=== PATIENT | male | born 2005 | race African-American/Black ===

== ENCOUNTER 2025-02-10 13:47 | Emergency (ER) | payer MEDICAID, SELFPAY ==
--- NOTE | ~2025-02-10 | XR_ITS ---
EXAMINATION: XR foot LT min 3V DATE: 02/10/2025 15:03 INDICATION: Left foot surgery 3 weeks ago TECHNIQUE: 6 images of the left foot were obtained. COMPARISON: None. FINDINGS: Orthopedic screw in the calcaneus presumably transfixing a fractured calcaneus. Alignment is near anatomic. There is orthopedic hardware along the medial aspect of the midfoot without radiographic evidence for loosening of the hardware. Mild hallux valgus deformity. Mild joint space narrowing in the first metatarsophalangeal joint with adjacent soft tissue swelling. Bone mineralization is within normal limits. No sclerotic or destructive bone lesions identified. Soft tissue swelling about the left foot. IMPRESSION: 1. Orthopedic screw in the calcaneus presumably transfixing a fractured calcaneus. Alignment is near anatomic. 2. There is orthopedic hardware along the medial aspect of the midfoot without radiographic evidence for loosening of the hardware. 3. Mild hallux valgus deformity. Mild joint space narrowing in the first metatarsophalangeal joint with adjacent soft tissue swelling. If continued concern, consider a short-term follow-up study or additional imaging for further assessment. Reviewed, dictated and finalized at location Q. IMPRESSION: 1. Orthopedic screw in the calcaneus presumably transfixing a fractured calcane us. Alignment is near anatomic. 2. There is orthopedic hardware along the medial aspect of the midfoot without radiographic evidence for loosening of the hardware. 3. Mild hallux valgus deformity. Mild joint space narrowing in the first metata rsophalangeal joint with adjacent soft tissue swelling. If continued concern, consider a short-term follow-up study or additional imagi ng for further assessment.
[2025-02-10 13:51] VITALS: BP 132/96; PULSE 107; RESP 18; TEMP 37.6; O2SAT 99
[2025-02-10] MEDS: KETOROLAC (*BKC) 60 MG/2 ML VIAL IM (15:46)
--- NOTE | 2025-02-10 15:46 | ED_ITS ---
HPI - Extremity Problem General Chief complaint: Extremity Problem,Nontraumatic Stated complaint: L. foot pain Time Seen by Provider: 02/10/25 14:37 History of Present Illness HPI Narrative: Patient is a 19-year-old male who presents to the ER with complaints left inner foot pain. He reports his pain has been going on for many years but has recently worsened. Patient reports he has a history of CP and has had multiple surgeries on his left foot. He denies any recent new injury. Patient reports he has been trying to work out to improve pain, but he reports it has not helped. He reports he is able to ambulate, but he is concerned because his left leg is his ?dominant leg. Patient denies any other medical history relevant to this ER visit. He denies any calf pain, recent fevers, decreased range of motion or joint swelling. Related Data Allergies Allergy/AdvReac Type Severity Reaction Status Date / Time No Known Allergies Allergy Verified 02/10/25 13:54 Review of Systems Review of Systems: All systems reviewed & are unremarkable except as noted in HPI and below Exam Narrative: GENERAL: Well appearing, well-nourished, non-toxic, in no acute distress. HEAD: Normocephalic, atraumatic. NECK: Supple. No adenopathy, no masses. RESPIRATORY: Airway patent, respirations nonlabored. Clear to auscultation bilaterally, no rales, rhonchi, wheezing. CARDIOVASCULAR: Regular rate and rhythm without murmurs, rubs, or gallops. Peripheral pulses 2+ and equal bilaterally. ABDOMINAL: Soft, nontender, nondistended, no hepatosplenomegaly. Normoactive BS. MUSCULOSKELETAL: Moves all extremities. Strength/ROM intact without acute gross deformities. SKIN: Warm, dry, normal color. No rashes. NEURO: A&O X3. Speech clear. Cranial nerves II-XII intact. No ataxic movements. PSYCHIATRIC: Appropriate mood and affect. Normal interaction. Course Vital Signs Vital signs: Vital Signs Temperature 37.6 C 02/10/25 13:51 Pulse Rate 107 H 02/10/25 13:51 Respiratory Rate 18 02/10/25 13:51 Blood Pressure 132/96 H 02/10/25 13:51 Pulse Oximetry 99 02/10/25 13:51 Oxygen Delivery Room Air 02/10/25 13:51 Temperature 37.6 C 02/10/25 13:51 Pulse Rate 107 H 02/10/25 13:51 Respiratory Rate 18 02/10/25 13:51 Blood Pressure 132/96 H 02/10/25 13:51 Pulse Oximetry 99 02/10/25 13:51 Oxygen Delivery Room Air 02/10/25 13:51 MDM - Extremity (Nontraumatic) MDM Narrative Medical decision making narrative: Patient is a 19-year-old male who presents to the ER with complaints left inner foot pain. He reports his pain has been going on for many years but has recently worsened. Patient reports he has a history of CP and has had multiple surgeries on his left foot. He denies any recent new injury. Patient reports he has been trying to work out to improve pain, but he reports it has not helped. He reports he is able to ambulate, but he is concerned because his left leg is his ?dominant leg. Patient denies any other medical history relevant to this ER visit. He denies any calf pain, recent fevers, decreased range of motion or joint swelling. Labs Ordered: None necessary Imaging Ordered: Left foot x-ray Medications Ordered: Toradol 60 mg IM Results: Patient's left foot x-ray indicates 1. Orthopedic screw in the calcaneus presumably transfixing a fractured calcaneus. Alignment is near anatomic. 2. There is orthopedic hardware along the medial aspect of the midfoot without radiographic evidence for loosening of the hardware. 3. Mild hallux valgus deformity. Mild joint space narrowing in the first m etatarsophalangeal joint with adjacent soft tissue swelling. Diagnosis: Left foot pain, osteoarthritis Consults: Orthopedic surgery (outpatient), podiatry (outpatient) Patient Education/Shared MDM: Results of imaging shared with patient. Patient strongly advised to follow-up with orthopedic surgery or Podiatry soon as possible. He will be discharged home with a prescription for ibuprofen 800mg. Patient offered an Hima wrap but he declined. Strict return precautions provided. Patient verbalized understanding and is in agreement with plan. Vital signs stable at time of discharge. All questions answered. Differential Diagnosis Differential diagnosis: Likely lower extremity edema and other (Left foot fracture, left foot sprain, hardware movement, left foot pain) Discharge Plan Discharge Clinical Impression: Chronic pain in left foot, Osteoarthritis of foot, left Patient Disposition: Home Condition: Stable Instructions: Antibiotic Form, Osteoarthritis (ED) Additional Instructions: Please return to the ER with any worsening symptoms. Follow-up with Podiatry or Orthopedic surgery as soon as possible. You may take ibuprofen 800 mg every 8 hours for pain control. Patient Language: Prydeinig Prescriptions: New ibuprofen 800 mg tablet 800 mg PO TID Qty: 30 0RF Follow-up/Referrals: [facility] [Provider Group, Podiatry] Referral Note: podiatry Karthik Cornejo DPM [Physician, Podiatry] Referral Note: podiatry Kartik Verdni Jr., DPM [Physician, Podiatry] Referral Note: podiatry PHYSICIAN NOT ON STAFF,NONSTAFF [Primary Care Provider] Campbell Simmons MD [Physician, Orthopedics] Referral Note: orthopedic surgery Time of Disposition: 16:12
[2025-02-10 16:21] VITALS: BP 112/62; PULSE 86; RESP 16; TEMP 36.4; O2SAT 98
--- OUTSIDE RECORDS SUMMARY | 2025-02-10 16:37 | XMS_ITS | Clinical Summary ---
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 Social History Tobacco Use Types Packs/Day Years Used Date Smoking Tobacco: Never Smokeless Tobacco: Never Tobacco Cessation:Counseling Given: Not Answered Sex and Gender Information Value Date Recorded Sex Assigned at Male 03/12/2022 12:03 AM EDT Legal Sex Male 12:03 AM EDT Gender Identity Not on file Sexual Orientation Not on file Last Filed Vital Signs Vital Sign Reading Time Taken Comments Blood Pressure 120/70 11/29/2021 9:53 AM CDT Pulse - - Temperature - - Respiratory Rate - - Oxygen Saturation - - Inhaled Oxygen Concentration - - Weight 62.5 kg (137 lb 12.6 oz) 024 10:46 AM SKIN FORMER Height 160 cm (5' 2.99) 07/01/2023 10: 46 AM SKIN FORMER Body Mass Index 24.41 07/01/2023 10:46 AM SKIN FORMER Plan of Treatment Not on file Insurance [place] [id number] [facility] Care Teams Fudge Candy Maker Relationship Specialty Start Date End Date Dewey Horner DO [address] [address] PCP - General 03/04/22
--- OUTSIDE RECORDS SUMMARY | 2025-02-10 16:37 | XMS_ITS | Clinical Summary ---
Author Organization [facility] Address [address] [place] [id number] Care Team Providers Care Computer Meteorologist Name Role Phone Freddie Perdomo MD Primary Care Provider Allergies No known active allergies Medications Baclofen 5 MG tablet Take 5 mg by mouth 3 times daily as needed. 03/18/2024 Active Active Problems Problem Noted Date Diagnosed Date Impaired mobility 10/11/2022 Spastic cerebral palsy (CMD) 04/12/2022 Pes planus 11/28/2021 Resolved Problems Problem Noted Date Diagnosed Date Resolved Date Total self-care deficit 11/02/2019 04/0 11/2024 Immunizations Immunization Administration Dates Next Due DTaP 08/03/2004, 4,2003,05/13 HIB, Unspecified Formulation 08/03/2004, 2003,2003,05/13 Hep B, adolescent or pediatric 2003,2002,2003 IPV 2003,2003,2003 MMR 03/18/2009,04/06/2004 Meningococcal B, OMV 01/16/2021 Meningococcal Conjugate MCV4 P (Menactra) 01/16/2021,01/14/2018 Meningococcal MCV4, Unspecif ied Formulation 01/16/2021 Pneumococcal Conjugate 7 Valent 12/01/19 05,08/03/2004,2003,05/13 Polio, Unspecified Formulation 03/18/2009 Tdap 05/01/2015 Varicella 03/18/2009,11/30/2004 Medical History Medical History Date Comments Cerebral palsy (CMD) Paraparesis (CMD) Scissoring gait Social History Tobacco Use Types Packs/Day Years Used Date Smoking Tobacco: Never Smokeless Tobacco: Never Tobacco Cessation:Counseling Given: Yes Alcohol Use Standard Drinks/Week Comments Never 0 (1 standard drink = 0.6 oz pur e alcohol) PHQ-2 Answer Date Recorded Initial depression screening score: 0 09/06/2024 Sexually Active Control Partners Comments Not Currently Sex and Gender Information Value Date Recorded Sex Assigned at Not on file Legal Sex Male 3:07 PM CDT Gender Identity Not on file Sexual Orientation Not on file Obstetrics History Last Filed Vital Signs Vital Sign Reading Time Taken Comments Blood Pressure 131/86 10/27/2024 8:57 AM CDT Pulse 91 10/27/2024 8:57 AM CDT Temperature 36.1 C (97 F) 10/27/2024 8:57 AM CDT Respiratory Rate - - Oxygen Saturation - - Inhaled Oxygen Concentration - - Weight 59.4 kg (131 lb) 10/27/2024 8:57 AM CDT Height 160 cm (5' 3) 10/27/2024 8:57 AM CDT Body Mass Index 23.21 10/27/2024 8:57 AM CDT Plan of Treatment Health Maintenance Due Date Last Done Comments HPV Vaccine (1 - Male 3-dose series) 2018 Meningococcal Serogroup B Vaccine (2 of 2 - Bexsero SCDM 2-dose series) 07/19/2021 01/16/2021 COVID-19 Vaccine (2 - 2024- season) 2025 11/23/2020 Influenza Vaccine (#1) 2025 DTaP/Tdap/Td Vaccine (6 - Td or Tdap) 05/01/2025 05/01/2015, 08/03/2004, 2003, Additional history exists Depression Screening 09/06/2025 09/06/2024 Well Child Visit (ages 3 - 21) 09/06/2025 09/06/2024 Hepatitis B Vaccine Completed 2003, 2003, 2003 Pneumococcal Vaccine 0-49 Aged Out 2004, 08/03/2004, 2003, Additional history exists No longer eligible based on patient's age to complete this topic Varicella Vaccine Completed 03/18/2009, 11/30/2004 Meningococcal Vaccine Completed 01/16/2021 , 01/16/2021, 01/14/2018 Hepatitis A Vaccine Aged Out No longe r eligible based on patient's age to complete this topic Insurance Member Subscriber Plan / Payer (Ef fective 2024-Present) Name:Satinder Vasquez Relation to Subscriber:Self Name:Satinder Vasquez Payer ID:Not on file Group ID:Not on file Type:[id number] Address: [facility] [id number] [place] [id number] Care Teams Computer Meteorologist Relationship Specialty [place] [address] [place] [address] PCP - General 04/10/23
--- OUTSIDE RECORDS SUMMARY | 2025-02-10 16:37 | XMS_ITS | Clinical Summary ---
Author Organization [facility] Address [address] [place] [address] Phone Care Team Providers Care Stringer Machine Tender Name Role Phone Provider, None Primary Care Provider Unavailabl e Allergies No known active allergies Medications ibuprofen (MOTRIN) 800 MG TabletIndicatio ns:Foot pain, left Take 1 Tablet by mouth every 8 hours. 30 Tablet 04/12/2022 Active HYDROcodone-amrilia taminophen (NORCO) 5-325 MG TabletIndicatio ns:Hand blister Take 1-2 Tablets by mouth every 4 hours as needed for Moderate or more severe pain. 15 Tablet 05/27/2022 Active Active Problems Problem Noted Date Diagnosed Date Cerebral palsy 04/12/2022 Immunizations Immunization Administration Dates Next Due Covid-19, Mrna, Lnp-s, Pf, 3 0 Mcg/0.3 Ml Dose (Streamweaver) 11/23/2020 DTAP VACCINE 08/03/2004,,2003,05/13 Hepatitis B Vaccine, Pediatric/adolescent 2003,2003,2003 Hib Vaccine,unspecified Formulation 08/2004,2003,2003,05/13 Inactivated Polio Vaccine 2003,2003, 2003 MMR Vaccine 03/18/2009,04/06/2004 Meningococcal Vaccine 01/14/2018 Pneumococcal Vaccine Peds - 7 Valent 06/2004,08/03/2004,2003,05/13 Polio Vaccine,unspecified Formulation 03/18/2009 TDAP Vaccine 05/01/2015 Varicella Vaccine Live 03/18/2009,11/30/2004 Social History Tobacco Use Types Packs/Day Years Used Date Smoking Tobacco: Never Smokeless Tobacco: Never Sex and Gender Information Value Date Recorded Sex Assigned at Male 06/29/2023 5:10 PM DOCTOR OF NURSE ANESTHESIA Legal Sex Male 9:26 AM CDT Gender Identity Male 06/29/2023 5:10 PM DOCTOR OF NURSE ANESTHESIA Sexual Orientation Not on file Last Filed Vital Signs Vital Sign Reading Time Taken Comments Blood Pressure 145/87 06/29/2023 4:12 PM DOCTOR OF NURSE ANESTHESIA Pulse 97 06/29/2023 4:12 PM DOCTOR OF NURSE ANESTHESIA Temperature 37.1 C (98.7 F) 06/29/2023 4:12 PM DOCTOR OF NURSE ANESTHESIA Respiratory Rate 18 06/29/2023 4:12 PM DOCTOR OF NURSE ANESTHESIA Oxygen Saturation 100% 06/29/2023 4:12 PM DOCTOR OF NURSE ANESTHESIA Inhaled Oxygen Concentration - - Weight 81.6 kg (180 lb) 06/29/2023 4:12 PM DOCTOR OF NURSE ANESTHESIA Height 160 cm (5' 3) 06/29/2023 4:12 PM DOCTOR OF NURSE ANESTHESIA Body Mass Index 31.89 06/29/2023 4:12 PM DOCTOR OF NURSE ANESTHESIA Plan of Treatment Health Maintenance Due Date Last Done Comments Hepatitis C Virus (HCV) Screening 2003 Human Papillomavirus (HPV) Immunization (1 - Male 3-dose series) 2018 Meningococcal B Immunization (1 of 2 - Standard) 2019 Influenza Immunization (#1) 2025 SARS-COV-2 Immunization (2 - season) 2025 11/23/2020 DTaP/Tdap/Td Immunization (6 - Td or Tdap) 05/01/2025 05/01/2015, 08/03/2004, 2003, Additional history exists Respiratory Syncytial Virus (RSV) Immunization (Adult) (1 - 1-dose 75+ series) 2078 Hepatitis B Immunization Completed 004, 2003, 2003 Pneumococcal Immunization Combined Aged Out 11/30/2004, 08/03/2004, 2003, Additional history exists No longer eligible based on patient's age to complete this topic Meningococcal Immunization (ACWY) Aged Out 01/14/2018 No longer eligible based on patient's age to complete this topic Rotavirus Immunization Aged Out No lo nger eligible based on patient's age to complete this topic Insurance MEDICAID [place] [facility] [employer] [facility] Care Teams Stringer Machine Tender Relationship Specialty Start Date End Date Provider, None [place] PCP - General 01/25/22
--- OUTSIDE RECORDS SUMMARY | 2025-02-10 16:37 | XMS_ITS | Clinical Summary ---
Author Organization [employer] [facility] [place] [address] Phone Care Team Providers Care Radiologic Electronic Specialist Name Role Phone Unknown, Pcp MD Primary Care Provider Unavailabl e Allergies No known active allergies Medications amitriptyline (ELAVIL) 10 mg tablet Take 10 mg by mouth nightly Active baclofen 5 mg tab Take 1 (one) Tablet by mouth 3 (three) times daily as needed 30 Tablet 03/18/2024 Active Social History Tobacco Use Types Packs/Day Years Used Date Smoking Tobacco: Never Smokeless Tobacco: Never Alcohol Use Standard Drinks/Week Comments Never 0 (1 standard drink = 0.6 oz pur e alcohol) AUDIT-C Answer Date Recorded Q1: How often do you have a drink containing alc ohol? Never 01/26/2020 Average Number of Drinks Not on file 020 Frequency of Binge Drinking Not on file 01/01 Sex and Gender Information Value Date Recorded Sex Assigned at Not on file Legal Sex Male 6:32 PM EDT Gender Identity Not on file Sexual Orientation Not on file Last Filed Vital Signs Vital Sign Reading Time Taken Comments Blood Pressure 140/90 07/23/2024 1:57 PM MASSEUR/MASSEUSE Pulse 88 07/23/2024 1:57 PM MASSEUR/MASSEUSE Temperature 36.7 C (98 F) 07/23/2024 1:57 PM MASSEUR/MASSEUSE Respiratory Rate 18 07/23/2024 1:57 PM MASSEUR/MASSEUSE Oxygen Saturation 98% 07/23/2024 1:57 PM MASSEUR/MASSEUSE Inhaled Oxygen Concentration - - Weight 59.9 kg (132 lb) 07/23/2024 9:10 AM MASSEUR/MASSEUSE Height 160 cm (5' 3) 07/23/2024 9:10 AM MASSEUR/MASSEUSE Body Mass Index 23.38 07/23/2024 9:10 AM MASSEUR/MASSEUSE Plan of Treatment Health Maintenance Due Date Last Done Comments HIV Screening 2003 Well Visit 2006 HPV Vaccination (1 - Male 3- dose series) 2018 Depression Screening 2021 Influenza Vaccination (#1) 2024 COVID-19 Vaccine (2 - 2024-2 6 season) 2025 11/23/2020 Tdap/Td Vaccination (6 - Td or Tdap) 05/01/2025 05/01/2015, 08/03/2004, 2003, Additional history exists Hepatitis B Vaccination Completed 08/19/19 04, 2003, 2003 Insurance [facility] [address] Care Teams Radiologic Electronic Specialist Relationship Specialty Start Date End Date Unknown, PcpMD PCP - General Unknown Physician Specialty 09/17/20
== END 2025-02-10 16:22 | disposition home or self-care (01) ==
PROVIDERS: Emergency Provider Registered Nurse
DX: M19.072 Primary osteoarthritis, left ankle and foot (principal)
CPT/HCPCS: 73630; 96372; 99283; J1885